=== PATIENT | male | born 1980 | race Asian ===

== ENCOUNTER → 2021-06-17 | Outpatient (CLI) | payer OTHER ==
[2021-06-18 02:06] LABS: RUBEOLA (MEASLES) IGG 26.2 AU/mL (Immune >16.4)
== END | disposition home or self-care (01) ==
LOC: LABMN 11:03
PROVIDERS: ATTEND Internal Medicine
DX: Z02.1 Encounter for pre-employment examination (principal)
CPT/HCPCS: 86706; 86735; 86762; 86765; 86787

== ENCOUNTER 2022-12-19 11:47 | Emergency (ER) | payer OTHER ==
[~2022-12-19] VITALS: Ht 170.2 cm; Wt 75.0 kg
[2022-12-19 12:09] VITALS: TEMP 98.7
[2022-12-19] MEDS ORDERED: IBUPROFEN 600 MG TABLET PO ONE (13:30)
[2022-12-19] MEDS ORDERED: IBUP-1554 PO (14:10)
[2022-12-19 14:32] VITALS: BP 132/80; PULSE 84; RESP 16
== END 2022-12-19 14:34 | disposition home or self-care (01) ==
LOC: EMS 11:58
DX: S63.512A Sprain of carpal joint of left wrist, initial encounter (principal); X58.XXXA Exposure to other specified factors, initial encounter; Y93.89 Activity, other specified; Y92.89 Other specified places as the place of occurrence of the external cause; Y99.8 Other external cause status
CPT/HCPCS: 99283